=== PATIENT | male | born 1985 | race African-American/Black ===

== ENCOUNTER 2020-05-30 12:29 | Emergency (ER) | payer SELFPAY ==
[~2020-05-30] VITALS: Ht 175.3 cm; Wt 72.6 kg
[2020-05-30 12:29] VITALS: BP 107/70
--- NOTE | 2020-05-30 13:06 | NUR ---
Cancel ultrasound per Dr. luis
--- NOTE | 2020-05-30 13:11 | NUR ---
Patient discharged to home in stable condition. Written and verbal after care instructions given. Patient verbalizes understanding of instruction.
== END 2020-05-30 13:13 | disposition home or self-care (01) ==
LOC: ER 12:35
DX: L73.8 Other specified follicular disorders (principal)